=== PATIENT | male | born 1990 ===

== ENCOUNTER 2024-11-13 22:19 | Emergency (ER) | payer SELFPAY | END 2024-11-13 23:55 | LOC: NAV ERS 22:19 | DX: T18.9XXA Foreign body of alimentary tract, part unspecified, initial encounter (principal); M25.512 Pain in left shoulder; I10 Essential (primary) hypertension; Z79.899 Other long term (current) drug therapy; W44.8XXA Other foreign body entering into or through a natural orifice, initial encounter; Y92.149 Unspecified place in prison as the place of occurrence of the external cause | CPT/HCPCS: 74022; 99283 ==